=== PATIENT | male | born 1990 | race Caucasian/White ===

== ENCOUNTER 2018-08-03 17:47 | Emergency (ER) | payer OTHER ==
[2018-08-03 17:59] VITALS: RESP 18; TEMP 98.3; BMI 33.9
--- NOTE | 2018-08-03 18:10 | ED PDOC ---
Arrival/HPI - General Time Seen by Provider: 08/03/18 18:02 Historian: Patient - History of Present Illness Narrative History of Present Illness (Text): 08/03/18 18:06 27 y/o pmh, including htn and he takes metoprolol 25mg po qd, psychiatric history including anxiety with panic attack, referred to the Emergency Department by PMD for evaluation of anxiety attack with sensation of chest tightness, difficulty breathing and "tingling" of entire body for the past 12 hours. Patient denies any slurred speech, extremity weakness or any other neurological deficits. Patient denies any fever, chills, chest pain, abdominal pain, nausea, vomiting, diarrhea,trauma to the chest or any other complaints. Patient denies smoking tobacco. Time/Duration: Prior to Arrival Symptom Onset: Gradual Symptom Course: Unchanged Quality: Tightness Activities at Onset: Light Context: Other (Referred by PMD) Past Medical History - Provider Review Nursing Documentation Reviewed: Yes Family/Social History - Physician Review Nursing Documentation Reviewed: Yes Family/Social History: No Known Family HX Allergies/Home Meds Allergies/Adverse Reactions: Allergies No Known Allergies Allergy (Verified 08/03/18 18:09) Home Medications: Home Meds Medication Instructions Recorded Confirmed Metoprolol [Lopressor] 5 mg PO DAILY 08/03/18 08/03/18 Review of Systems - Physician Review All systems were reviewed & negative as marked: Yes - Review of Systems Constitutional: absent: Fatigue, Fevers Eyes: absent: Vision Changes ENT: absent: Hearing Changes Respiratory: Other (chest tightness). absent: SOB, Cough, Sputum, Wheezing Cardiovascular: absent: Chest Pain, Palpitations, Edema, Calf Pain, VEGA, Orthopnea, Syncope Gastrointestinal: absent: Abdominal Pain, Diarrhea, Nausea, Vomiting Musculoskeletal: absent: Back Pain, Neck Pain Neurological: Other (+tingling). absent: Headache, Dizziness, Focal Weakness, Speech Changes, Facial Droop Psychiatric: Anxiety. absent: Depression, Suicidal Ideation Physical Exam Vital Signs Reviewed: Yes Vital Signs Temp Pulse Resp BP Pulse Ox 08/03/18 19:25 90 18 149/93 H 99 08/03/18 17:58 98.3 F 93 H 18 176/99 H 100 Temperature: Afebrile Blood Pressure: Hypertensive Pulse: Regular Respiratory Rate: Normal Appearance: Positive for: Well-Appearing, Non-Toxic, Comfortable Pain Distress: None Mental Status: Positive for: Alert and Oriented X 3 - Systems Exam Head: Present: Atraumatic, Normocephalic Pupils: Present: PERRL Extroacular Muscles: Present: EOMI Conjunctiva: Present: Normal Mouth: Present: Moist Mucous Membranes Nose (External): Present: Atraumatic. No: Abrasion, Contusion, Laceration Nose (Internal): Present: Normal Inspection, No Active Bleeding. No: Rhinorrhea , Septal Hematoma, Epistaxis Neck: Present: Normal Range of Motion, Trachea Midline. No: MIDLINE TENDERNESS , Lymphadenopathy Respiratory/Chest: Present: Clear to Auscultation, Good Air Exchange. No: Respiratory Distress, Accessory Muscle Use, Wheezes, Retracting, Rhonchi, Tachypneic Cardiovascular: Present: Regular Rate and Rhythm, Normal S1, S2. No: Murmurs Abdomen: No: Tenderness, Distention, Peritoneal Signs, Rebound, Guarding Back: Present: Normal Inspection Upper Extremity: Present: Normal Inspection, Normal ROM, Neurovascularly Intact , Capillary Refill < 2s. No: Cyanosis, Edema, Tenderness, Swelling, Deformity Lower Extremity: Present: Normal Inspection, NORMAL PULSES, Normal ROM, Neurovascularly Intact, Capillary Refill < 2 s. No: Edema, CALF TENDERNESS, Tenderness, Swelling, Deformity, Temperature Abnormalties Neurological: Present: GCS=15, CN II-XII Intact, Speech Normal, Motor Func Grossly Intact, Gait Normal, Memory Normal Skin: Present: Warm, Dry, Normal Color. No: Rashes Lymphatic: No: Cervical Adenopathy, Axillary Adenopathy Psychiatric: Present: Alert, Oriented x 3, Anxious Medical Decision Making ED Course and Treatment: 08/03/18 18:10 Differential: pneumothorax vs. panic attack/anxiety vs. STEMI -labs/ua/uds -ekg -cxr -xanax 0.5mg -observe and reassess 08/03/18 19:30 -HEART score is 1 -EKG: NSR @ 91 BPM, no ST elevation or depression, no T wave inversion -Chest xray -Labs show no acute findings except wbc 13 (afebrile, likely stress induced), CK 252 (drinking water) -BNP within normal limit -Troponin is negative -UA show no UTI -UDS show no acute findings -All signs and symptoms resolved with xanax 0.5mg po, BP decreased, smiling and talking with no anxious in the ER, refused psychiatric evaluation, request to be discharged home. -Discharge home with education on follow up with your own pmd and language specialist within 2 days, return to the ER for any new or worsening signs or symptoms. - Lab Interpretations Lab Results: 08/03/18 18:13 08/03/18 18:13 Lab Results 08/03/18 18:55: Urine Color Yellow, Urine Appearance Clear, Urine pH 6.0, Ur Specific [place] 1.020, Urine Protein Negative, Urine Glucose (UA) Negative, Urine Ketones Negative, Urine Blood Negative, Urine Nitrate Negative, Urine Bilirubin Negative, Urine Urobilinogen 0.2, Ur Leukocyte Esterase Negative 08/03/18 18:55: Urine Opiates Screen Negative, Urine Methadone Screen Negative, Ur Barbiturates Screen Negative, Ur Phencyclidine Scrn Negative, Ur Amphetamines Screen Negative, U Benzodiazepines Scrn Negative, U Oth Cocaine Metabols Negative, U Cannabinoids Screen Negative 08/03/18 18:13: WBC 13.0 H, RBC 5.57, Hgb 15.6, Hct 46.1, MCV 82.8, MCH 28.0, MCHC 33.8, RDW 13.5, Plt Count 311, MPV 9.4, Gran % 57.8, Lymph % (Auto) 34.2, [place] % (Auto) 6.8 H, Eos % (Auto) 1.0 L, Baso % (Auto) 0.2, Gran # 7.53 H, Lymph # (Auto) 4.5 H, [place] # (Auto) 0.9 H, Eos # (Auto) 0.1, Baso # (Auto) 0.03 08/03/18 18:13: Sodium 140, Potassium 3.7, Chloride 102, Carbon Dioxide 29, Anion Gap 13, BUN 12, Creatinine 1.0, Est GFR ( Amer) > 60, Est GFR (Non- Af Amer) > 60, Random Glucose 96, Calcium 8.8, Magnesium 2.2, Total Bilirubin 0.3, AST 34, ALT 66 H, Alkaline Phosphatase 63, Lactate Dehydrogenase 491, Total Creatine Kinase 252 H, CK-MB (CK-2) 0.5, CK-MB (CK-2) % Cancelled, Troponin I < 0.01, NT-Pro-B Natriuret Pep 11.9, Total Protein 7.8, Albumin 4.4, Globulin 3.4, Albumin/Globulin Ratio 1.3 - RAD Interpretation Radiology Orders: 08/03/18 18:07 CHEST PORTABLE [RAD] Stat - EKG Interpretation EKG Interpretation (Text): 08/03/18 18:10 EKG: NSR @ 91 BPM, no ST elevation or depression, no T wave inversion Interpreted by ED Physician: Yes - Medication Orders Current Medication Orders: Discontinued Medications Alprazolam (Xanax) 0.5 mg PO STAT STA PRN Reason: Protocol Stop: 08/03/18 18:08 Last Admin: 08/03/18 18:28 Dose: 0.5 mg - PA / LAB SPECIALIST / Resident Statement MD/DO has reviewed & agrees with the documentation as recorded. - Scribe Statement The provider has reviewed the documentation as recorded by the Scribe Tia Suresh. All medical record entries made by the Scribe were at my direction and personally dictated by me. I have reviewed the chart and agree that the record accurately reflects my personal performance of the history, physical exam, medical decision making, and the department course for this patient. I have also personally directed, reviewed, and agree with the discharge instructions and disposition. Disposition/Present on Arrival - Present on Arrival Any Indicators Present on Arrival: No History of DVT/PE: No History of Uncontrolled Diabetes: No Urinary Catheter: No History of Decub. Ulcer: No - Disposition Have Diagnosis and Disposition been Completed?: Yes Diagnosis: Panic attack, HTN (hypertension) Disposition: HOME/ ROUTINE Disposition Time: 19:32 Patient Plan: Discharge Patient Problems: Current Active Problems Problem Status Onset Panic attack Acute HTN (hypertension) Acute Condition: IMPROVED Additional Instructions: -Discharge home with education on follow up with your own pmd and language specialist within 2 days, return to the ER for any new or worsening signs or symptoms. Referrals: Kory Craig MD [Staff Provider] - Follow up with primary [facility] at [facility] – [place] [Outside] - Follow up with primary Forms: WORK NOTE
[2018-08-03 18:32] LABS: BASO # 0.03 K/mm3 (0.0-2.0); BASO % 0.2 % (0.0-3.0); EOS # 0.1 (0.0-0.7); GRAN # 7.53 (1.4-6.5); GRAN % 57.8 % (50.0-68.0); HEMOGLOBIN 15.6 g/dL (14.0-18.0); LYMPH # 4.5 (1.2-3.4); LYMPH % 34.2 % (22.0-35.0); MEAN CELL VOLUME 82.8 fl (80.0-105.0); MEAN CORPUSCULAR HGB CONC 33.8 g/dl (31.0-37.0); MEAN PLATELET VOLUME 9.4 fl (7.0-11.0); MONO # 0.9 (0.1-0.6); MONO % 6.8 % (1.0-6.0); RBC 5.57 10^6/uL (3.5-6.1); RED CELL DISTRIBUTION WIDTH 13.5 % (11.5-14.5)
--- NOTE | 2018-08-03 18:37 | RAD ---
Date of service: 08/03/2018 HISTORY: chest tightness COMPARISON: No prior. FINDINGS: LUNGS: The lungs are well inflated and clear. PLEURA: No significant pleural effusion identified, no pneumothorax apparent. CARDIOVASCULAR: Normal. OSSEOUS STRUCTURES: No significant abnormalities. VISUALIZED UPPER ABDOMEN: Normal. OTHER FINDINGS: None. IMPRESSION: No active pulmonary disease.
[2018-08-03 18:41] LABS: ALB/GLOB RATIO 1.3 (1.1-1.8); ALBUMIN 4.4 g/dL (3.0-4.8); ALT/SGPT 66 U/L (7-56); AST/SGOT 34 U/L (17-59); BLOOD UREA NITROGEN 12 mg/dL (7-21); CALCIUM 8.8 mg/dL (8.4-10.5); GFR NON-AFRICAN AMERICAN > 60
[2018-08-03 18:53] LABS: B-TYPE NATRIURETIC PEPTIDE 11.9 pg/mL (0-450); TROPONIN I < 0.01 ng/mL
[2018-08-03 18:57] LABS: CK-MB 0.5 ng/mL (0.0-3.6)
[2018-08-03 19:21] LABS: URINE BILIRUBIN NEGATIVE (NEGATIVE); URINE BLOOD NEGATIVE (NEGATIVE); URINE GLUCOSE (UA) NEGATIVE (NEGATIVE); URINE LEUKOCYTE ESTERASE NEGATIVE Leu/uL (NEGATIVE); URINE PROTEIN NEGATIVE mg/dL (<30 mg/dL); URINE UROBILINOGEN 0.2 E.U./dL (<1 E.U./dL)
[2018-08-03 19:26] VITALS: BP 149/93; PULSE 90; O2SAT 99
[2018-08-03 19:28] LABS: URINE APPEARANCE CLEAR (CLEAR); URINE COLOR YELLOW (YELLOW)
[2018-08-03 19:29] LABS: BARBITURATES, UR NEGATIVE (NEGATIVE); BENZODIAZEPINES, UR NEGATIVE (NEGATIVE); OPIATES, UR NEGATIVE (NEGATIVE); PHENCYCLIDINE, UR NEGATIVE (NEGATIVE)
--- NOTE | 2018-08-03 19:29 | CARD ---
APPROVED REPORT Date of service: 08/03/2018 EKG Measurement Heart [id number] <Conclusion> Normal sinus rhythm with sinus arrhythmia Normal ECG
== END 2018-08-03 19:56 | disposition home or self-care (01) ==
LOC: ED 17:47
DX: F41.0 Panic disorder [episodic paroxysmal anxiety] (principal); I10 Essential (primary) hypertension